=== PATIENT | female | born 1965 | race Caucasian/White ===

== ENCOUNTER 2022-03-09 05:22 | Observation (INO) ==
--- NOTE | 2022-03-02 08:55 | Anesthesiology Consultation ---
Date of Service March 02, 2022 Assessment & Plan (1) Encounter for pre-operative examination: Chart Review Chart Review: Acceptable Risk for Surgery and Patient NOT seen in Pre Admission Testing -COVID screening: Per PAT nursing assessment on 03/01/22. No known COVID-19 positive contacts or current COVID-19 related symptoms. Travel screen negative. Patient vaccinated for Covid. At surgeon discretion if preop Covid testing being done. History Surgery Operation Date: 03/09/22 07:50 Proposed Procedures p Laparoscopic Cholecystectomy - Marco Luong DO s Laparoscipic Hiatal Hernia with Parital Fundoplication - Marco Luong DO Height/Weight Height: 5 ft 2 in Weight: 71.214 kg Allergies Allergy/AdvReac Type Severity Reaction Status Date / Time Penicillins Allergy Severe RESPIRATORY Verified 02/07/22 10:30 SHUT-DOWN Egg Derived Allergy Mild Vomiting Verified 03/01/22 08:34 Cephalosporins Allergy Unknown KEFLEX: Verified 02/07/22 10:30 FACIAL RASH, RESOLVED WHEN DRUG D/C'D codeine AdvReac Unknown upset Verified 03/01/22 08:34 stomach Medications Home Medications Medication Instructions Recorded Confirmed Last Taken Humira(CF) Pen 40 mg/0.4 mL 40 mg (0.4 mL) subcut .weekly 356 12/13/21 03/01/22 Unknown subcutaneous kit (adalimumab) days #4 ea albuterol sulfate 90 mcg/actuation 2 puff inhalation Q6H PRN 01/16/22 03/01/22 Unknown aerosol inhaler Shortness Of Breath Or Wheezing atorvastatin 10 mg tablet 10 mg PO QPM 01/16/22 03/01/22 Unknown docusate sodium 100 mg capsule 100 mg PO QPM 01/16/22 03/01/22 Unknown fluticasone 100 mcg-salmeterol 50 1 inh inhalation BID 01/16/22 03/01/22 Unknown mcg/dose blistr powdr for inhalation (Advair Diskus) marijuana 1 inh PO UD 01/16/22 03/01/22 Unknown melatonin 3 mg capsule 3 mg PO HS PRN Sleep 01/16/22 03/01/22 Unknown naloxegol 12.5 mg tablet (Movantik) 12.5 mg PO QAM PRN constipation 01/16/22 03/01/22 Unknown pantoprazole 40 mg tablet,delayed 40 mg PO QPM 01/16/22 03/01/22 Unknown release (Protonix) pregabalin 225 mg capsule (Lyrica) 225 mg PO QPM 01/16/22 03/01/22 Unknown rivaroxaban 20 mg tablet (Xarelto) 20 mg PO QPM 01/16/22 03/01/22 Unknown sertraline 25 mg tablet 25 mg PO QPM 01/16/22 03/01/22 Unknown famotidine 40 mg tablet 40 mg PO DAILY #90 tabs 01/17/22 03/01/22 Unknown oxycodone 10 mg tablet,extended 5 mg PO BID 01/17/22 03/01/22 Unknown release,12 hr enoxaparin 40 mg/0.4 mL 40 mg (0.4 mL) subcut DAILY #2 mL 02/07/22 03/01/22 Unknown subcutaneous syringe (Lovenox) acetaminophen 500 mg tablet 1,000 mg PO BID PRN Pain 03/01/22 03/01/22 Unknown (Tylenol Extra Strength) pregabalin 75 mg capsule (Lyrica) 75 mg PO QAM 03/01/22 03/01/22 Unknown Past Medical History Medical History (Updated 03/02/22 @ 08:57 by Cass Yates PA-C) Asthma Uses inhaler frequently Chronic pain syndrome Depression DJD (degenerative joint disease) DVT (deep venous thrombosis) 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) (1 upper left leg after hip replacement) (1 left calf) Dyspepsia 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 (bridging with Lovenox for surgery per med list and surgeon note) GERD (gastroesophageal reflux disease) Hiatal hernia IBS (irritable bowel syndrome) Insomnia Pbhk-Omcoe-Lsxspxk disease Marijuana use vapes, frequent daily use GEORGE (obstructive sleep apnea) no device Psoriatic arthritis Sicca syndrome Stage 2 chronic kidney disease Stroke Incidentally noted- old "spot" found - no deficits Past Family History Family History Mother Clotting disorder Grandfather Diabetes Diverticulitis Other No family history of adverse response to anesthesia Past Surgical History Surgical History H/O arthroscopic knee surgery (~1987) Right H/O total hysterectomy (~1992) History of esophagogastroduodenoscopy (EGD) History of surgery History of rectal fissure repair Hx of colonoscopy S/P removal of ovarian cyst (~1984) Status post total hip replacement, left (~1993) Social History Smoking Status: Current every day smoker tobacco type: cigarettes Smoking cigarettes per day: 1 pack per day- advised Do You Dip or Chew Tobacco: No Hx Alcohol Use: No Hx Substance Use: Yes (frequent daily use- advised) substance use type: marijuana Lab Results Anesthesia Preop Results Results Anesthesia Widget: WBC 6.31 K/ul (4.8-10.8) 03/01/22 Hgb 14.6 g/dl (12.0-16.0) 03/01/22 Hct 44.1 % (34.1-44.9) 03/01/22 Plt 250 K/uL (130-400) 03/01/22 Na 140 mmol/L (136-145) 03/01/22 K 4.1 mmol/L (3.5-5.1) 03/01/22 Cl 105 mmol/L (98-107) 03/01/22 CO2 29 mmol/L (21-32) 03/01/22 BUN 16 mg/dl (6-23) 03/01/22 Creat 1.13 mg/dl (0.6-1.2) 03/01/22 Glucose Level 92 mg/dl (70-99(Fasting)) 03/01/22 Testing Electrocardiogram Date: 03/01/22 Findings: + NSR @ (71bpm ) Normal EKG per cardio.
[2022-03-09] MEDS ORDERED: HEPARIN SOD 5,000 UNIT/0.5 ML VIAL SQ SCH (06:00)
[2022-03-09] MEDS ORDERED: CLINDA 900 MG **Premixed Bag IV SCH (06:00)
[2022-03-09] MEDS ORDERED: LACTATED RINGER'S 1,000 ML IV SCH (06:00)
[2022-03-09] MEDS ORDERED: ACETAMINOPHEN 1000 MG/100 ML IV IV ONE (06:38)
[2022-03-09] MEDS ORDERED: SCOPOLAMINE 1 MG TDSY TD ONE (06:38)
[2022-03-09] MEDS ORDERED: SUGAMMADEX SODIUM 200 MG/2 ML VIAL IV ONE (06:38)
[2022-03-09] MEDS ORDERED: FAMOTIDINE/PF 20 MG/2 ML VIAL IV ONE (06:38)
[2022-03-09] MEDS ORDERED: MIDAZOLAM HCL 1 MG/ML 2ML VIAL ONE (06:40)
[2022-03-09] MEDS ORDERED: fentaNYL citrate 100 MCG/2 ML VIAL ONE ×2 (06:41)
[2022-03-09] MEDS ORDERED: LARYING-O-JET KIT (LTA) ONE (06:43)
[2022-03-09] MEDS ORDERED: PROPOFOL IV EMULSION 10 MG/ML 20 ML VIAL IV ONE (06:43)
[2022-03-09] MEDS ORDERED: BUPIVACAINE/EPINEPHRINE 0.5% MPF 1:200,000 30 ML VIAL ONE (06:46)
[2022-03-09] MEDS ORDERED: ROCURONIUM BROMIDE 10 MG/ML 5 ML VIAL IV ONE (06:47)
[2022-03-09] MEDS ORDERED: HYDROmorphone INJ 2 MG/ML SYR/VIAL ONE (06:47)
--- NOTE | 2022-03-09 06:55 | History & Physical Bridge Note ---
Date of Service March 09, 2022 History & Physical Bridge Note I have examined the patient, reviewed the History & Physical and in the interval since the performance of the History & Physical I have noted the following changes of clinical significance: She tripped and fell over her 's oxygen tubing last night and hurt her right knee. There is some swelling. We will obtain an x-ray postoperatively. She has held her Lovenox and Rivaroxaban. We will proceed today with laparoscopic cholecystectomy hiatal hernia repair and partial fundoplication.
[2022-03-09] MEDS ORDERED: METOCLOPRAMIDE HCL INJ 5 MG/ML 2 ML VIAL ONE (07:29)
[2022-03-09] MEDS ORDERED: DEXAMETHASONE SOD INJ 4 MG/ML VIAL ONE (07:29)
[2022-03-09] MEDS ORDERED: ONDANSETRON INJ 2 MG/ML 2 ML VIAL ONE (07:29)
[2022-03-09] MEDS ORDERED: HYDROmorphone INJ 2 MG/ML SYR/VIAL IV PRN (08:09)
[2022-03-09] MEDS ORDERED: PROMETHAZINE HCL 12.5 MG in SODIUM CHLORIDE 0.9% 50 ML IV PRN ×2 (08:09→11:28)
[2022-03-09] MEDS ORDERED: ePHEDrine sulfate 50 MG/ML AMP IV PRN (08:09)
[2022-03-09] MEDS ORDERED: ATROPINE SULFATE 0.1 MG/ML 10ML SYR IV PRN (08:09)
[2022-03-09] MEDS ORDERED: ONDANSETRON INJ 2 MG/ML 2 ML VIAL IV PRN ×2 (08:09→11:28)
[2022-03-09] MEDS ORDERED: fentaNYL citrate 100 MCG/2 ML VIAL IV PRN (08:09)
--- NOTE | 2022-03-09 08:35 | Operative Report ---
PG Post Operative Report Pre & Post Diagnosis Operation Date: 03/09/22 07:00 Pre-Op Diagnosis: Gallstones, Right Upper Quadrant Abdominal Pain, Hiatal Hernia Post-Op Diagnosis: Gallstones, Right Upper Quadrant Abdominal Pain, Hiatal Hernia I identified the patient and participated in the time-out.: Yes Procedure Operation Date: 03/09/22 07:00 Actual Procedures p Laparoscopic Cholecystectomy(Not Applicable) - Marco Luong DO s Laparoscipic Hiatal Hernia with Parital Fundoplication, Posterior Gastropexy(Not Applicable) - Marco Luong DO Surgeon Marco Luong DO Senior Market Research Analyst hansel Preston Estimated Blood Loss 10 Findings Consistent with Post-Op Diagnosis Specimens gallbladder Description of Procedure After informed consent was obtained the patient was taken to the operating room and placed in supine position. After successful intubation the entire abdomen was sterilely prepped and draped in usual fashion. A supraumbilical incision was made with an 11 blade scalpel and carried down through the soft tissue using cautery. Anterior rectus fascia was opened using cautery and two #0 Vicryl stay sutures were placed. Peritoneum was entered using blunt finger penetration and a finger sweep was performed. A 12 mm on trocar was placed and the abdomen was insufflated to 18 mmHg. A left upper quadrant 5 mm port a subxiphoid 12 mm port a right upper quadrant 5 mm port and a right flank 5 mm port were all placed under direct vision. The patient was placed in a reverse Trendelenburg position. We began by removing the gallbladder. The gallbladder was grasped and elevated superiorly and laterally. A [place] dissector was used to take down adhesions around the neck of the gallbladder. The cystic duct was skeletonized and clipped twice proximally and once distally with a laparoscopic clip straight knife machine cutter. It was transected. There was a small posterior cystic artery that was skeletonized clipped and divided as well as an anterior branch that was clipped and divided. The gallbladder was then removed using cautery. It was placed into an Endo Catch bag and removed from the camera port site. Any small bleeding points in the gallbladder fossa were controlled using cautery. Thorough irrigation was performed. There was no evidence of any bile leaks and adequate hemostasis after this portion of the procedure was completed. My attention then turned to the hiatal hernia. A liver retractor was used to elevate the left lobe of the liver. The liver retractor was connected to the table throughout the procedure. There was a moderate sized probably 4 cm hiatal hernia. There was minimal gastric incarceration. I began by taking down the hernia sac by coming up along the right anish of the diaphragm. We continued anteriorly and down over onto the left anish taking down the hernia sac in 360 degrees. Once this was completed anesthesia removed the orogastric tube and placed a 50 Peruvian bougie. I made a small window in the retrogastric space. I primarily closed the hernia defect with 0 Surgidac. I began by placing a posterior stitch from the left anish to the right anish. Once this was a ccomplished I then took down the top 4 short gastric vessels using the harmonic scalpel. I then advanced a grasper through the retrogastric window and was able to grasp the fundus of the stomach. I was able to pull this through the retrogastric window with ease. I was able to easily perform a shoeshine test without any tension. I performed a posterior gastropexy by securing the body of the stomach to the right crura of the diaphragm again using 0 Surgidac. I then completed the partial 270 degree wrap by securing the fundus of the stomach to the anterior esophageal fat pad with several 0 Surgidac stitches. The wrap laid nice and tension-free. We then removed the bougie. I completed the hiatal hernia repair anteriorly with several 0 Surgidac stitches. There was adequate hemostasis. No other gross abnormalities were identified. We did evaluate the gallbladder fossa and again no evidence of bleeding or bile leaks. The liver retractor and all of the trochars were removed. The abdomen was desufflated. The fascia of the camera port was closed using 0 Vicryl in a [id number]-[id number] fashion. All the wounds were irrigated and closed using 4-0 Monocryl. Marcaine with epinephrine was injected around them for postoperative analgesia and skin glue used as a dressing. The patient was awakened extubated and transferred recovery in stable condition. My physician social worker assistant was present through the entire case. She was instrumental in assisting with the gallbladder as well as the hiatal hernia repair and fundoplication. Running the camera wound closure and dressing placement. I attest to the content of the Intraoperative Record and any orders documented therein. Any exceptions are noted below.
--- NOTE | 2022-03-09 10:39 | Anesthesiology Progress Note ---
Date of Service March 09, 2022 Anesthesia Post Procedure Vital Signs Vital Signs: Temp Pulse Resp BP Pulse Ox O2 Del Method O2 Flow Rate 03/09/22 10:35 84 14 121/68 94 Nasal Cannula 3 03/09/22 10:25 84 8 L 129/81 93 Nasal Cannula 3 03/09/22 10:15 86 10 L 120/74 91 Nasal Cannula 3 03/09/22 10:05 36.9 C 82 7 L 118/73 91 Oxymask 5 03/09/22 09:55 78 12 111/64 93 Oxymask 10 03/09/22 09:45 81 10 L 116/62 95 Oxymask 15 03/09/22 09:35 81 11 L 118/67 95 Oxymask 15 03/09/22 09:05 85 14 135/80 94 Oxymask 10 03/09/22 09:25 86 13 128/74 97 Oxymask 15 03/09/22 09:15 89 13 137/78 92 Oxymask 8 03/09/22 08:55 86 13 103/88 92 Oxymask 10 03/09/22 08:44 36.1 C L 87 16 143/80 H 95 Oxymask 10 03/09/22 05:58 36.7 C 75 20 118/76 95 Room Air Pain Intensity Right Knee: Pain Intensity: 8 Generalized: Pain Intensity: 6 Transfer of Care Handoff Completed per policy Notes Mental Status: alert / awake / arousable and participated in evaluation Patient Amnestic to Procedure: Yes Nausea / Vomiting: adequately controlled Pain: adequately controlled Airway Patency, RR, SpO2: stable & adequate BP & HR: stable & adequate Hydration State: stable & adequate Anesthetic Complications: no major complications apparent
[2022-03-09] MEDS ORDERED: ALBUTEROL HFA 8 GM INHALER INH PRN (11:28)
[2022-03-09] MEDS ORDERED: HYDROmorphone INJ 0.5 MG/0.5 ML SYR IV PRN ×2 (11:28)
[2022-03-09] MEDS: LACTATED RINGER'S 1,000 ML IV SCH ×2 (11:46→20:04)
[2022-03-09] MEDS ORDERED: MELATONIN 3 MG TAB PO PRN (11:58)
[2022-03-09] MEDS: ACETAMINOPHEN 1,000 MG/100 ML VIAL IV SCH ×2 (12:21→19:37)
[2022-03-09 12:39] LABS: Creatinine Clr Calc Pharmacy 51.9 ml/min; Est GFR (African American) 62.3 ml/min; Est GFR (Non-African American) 53.7 ml/min
[2022-03-09] MEDS: FLUTICASONE/VILANTEROL 100/25MCG 14 PUFFS/INHALER INH SCH (13:02)
[2022-03-09] MEDS: FAMOTIDINE 40 MG TABLET PO SCH (13:02)
[2022-03-09] MEDS: PREGABALIN 75 MG CAP PO SCH (13:02)
[2022-03-09] MEDS: oxyCODONE HCL IR 5 MG TAB (IMMEDIATE RELEASE) PO PRN ×2 (13:28→19:41)
--- NOTE | 2022-03-09 15:08 | XRay Report ---
RIGHT KNEE 3 VIEWS CLINICAL HISTORY: Fall. Right knee pain. FINDINGS: AP, crosstable lateral, and sunrise views of the right knee are obtained. No prior studies are available for comparison at the time of dictation. The skeletal structures are osteopenic. No fra cture is seen. There is minimal tricompartmental degenerative joint space narrowing. There are small marginal osteophytes and degenerative beaking of the tibial spine. No joint effusion is seen. The ove rlying soft tissues are normal as imaged. IMPRESSION: Osteopenia and mild degenerative change as above with no acute bony abnormality identifie d. Electronically signed by: Hany Forbes M.D. 03/09/2022 3:06 PM
[2022-03-09] MEDS ORDERED: SERTRALINE HCL 50 MG TABLET PO SCH (21:00)
[2022-03-09] MEDS ORDERED: ENOXAPARIN INJ 40 MG/0.4 ML SYR SQ SCH (21:00)
[2022-03-09] MEDS ORDERED: PANTOprazole 40 MG TAB PO SCH (21:00)
[2022-03-09] MEDS ORDERED: PREGABALIN 75 MG CAP PO SCH (21:00)
[2022-03-10] MEDS: ACETAMINOPHEN 1,000 MG/100 ML VIAL IV SCH (02:48)
[2022-03-10] MEDS: oxyCODONE HCL IR 5 MG TAB (IMMEDIATE RELEASE) PO PRN (05:27)
[2022-03-10] MEDS: LACTATED RINGER'S 1,000 ML IV SCH (05:27)
[2022-03-10 07:26] LABS: Basophils # (auto) 0.01 K/uL (0-0.2); Basophils % (auto) 0.1 %; Hematocrit (blood only) 39.2 % (34.1-44.9); Hemoglobin 12.8 g/dl (12.0-16.0); Immature Granulocytes # (auto) 0.05 K/uL (0.00-0.02); Immature Granulocytes % (auto) 0.4 %; Lymphocytes # (auto) 2.17 K/uL (1.2-3.4); Lymphocytes % (auto) 16.4 %; Mean Corpuscular Hemoglobin 28.5 pg (25.0-34.0); Mean Corpuscular Hgb Conc 32.7 g/dL (32.0-36.0); Mean Corpuscular Volume 87.3 fL (80.0-100.0); Mean Platelet Volume 12.1 fL (9.4-12.3); Monocytes # (auto) 1.05 K/uL (0.24-0.82); Monocytes % (auto) 7.9 %; Neutrophils # (auto) 9.97 K/uL (1.4-6.5); Neutrophils % (auto) 75.2 %; Platelet Count 204 K/uL (130-400); RDW Coefficient of Variation 14.2 % (11.5-14.5); Red Blood Count 4.49 M/uL (3.93-5.22); White Blood Count 13.25 K/ul (4.8-10.8)
--- NOTE | 2022-03-10 07:37 | Surgery Progress Note ---
Date of Service March 10, 2022 Assessment & Plan (1) Hiatal hernia: Plan: POD#1 lap demetri and hiatal hernia repair with gastropexy with partial fundoplication WBC 13, Hbg12.8. Vitals are stable, and patient saturating well on room air Expected discomfort from hiatal hernia repair. Ordered for her albuterol and fluticasone. Abdomen is otherwise soft, non distended, and incisions c/d/i with some umbilical [place] incisional ecchymosis Continue patient's Oxycontin ER scheduled, + Oxy IR prn, + Tylenol prn If tolerates clear liquids without issues and patient stable will plan on discharge to home later today Has knee pain and x-rays were obtained showing no acute abnormalities F/u in clinic with Dr. Luong in 1 week, continue liquid diet until then as above. pt seen. doing as expected. ok for d/c. instructions given. Admission and Anticipated Discharge Date Admission Date: March 09, 2022 Subjective Patient doing okay. Having some chest discomfort and pain with inspiration. Just received an inhaler with some relief. No abdominal pain. Currently no nausea/vomiting. Tolerating some sips of clears. Physical Exam Physical Exam: awake/alert, no distress Respiratory: normal respiratory effort Gastrointestinal (Abdomen): Inspection/Auscultation: + abdominal surgical incision (c/d/i with skin glue, some surrounding ecchymosis of umbilical incision); abdomen not distended Percussion/Palpation: abdomen soft; abdomen nontender Results & Data ([facility]) Vital Signs (Past 12 Hours) Vital Signs Temp Pulse Resp BP Pulse Ox O2 Del Method O2 Flow Rate 03/10/22 07:11 68 18 98 Room Air 03/10/22 06:55 36.8 C 67 18 107/68 96 Nasal Cannula 2 03/10/22 02:51 37.2 C 68 18 123/74 18 L Nasal Cannula 2 03/09/22 21:27 36.8 C 67 16 104/62 94 Nasal Cannula 2.0 PG Care Time/CCT Total # of Minutes Spent Total Time Spent with Patient: Total time spent is greater than 50% in coordination of care (as documented) at patient's floor/unit and/or counseling patient: Coding Level of Care Code None Diagnoses Hiatal hernia K44.9
[2022-03-10 07:51] LABS: BUN Creatinine Ratio 16.9 (10-20); Creatinine Clr Calc Pharmacy 71.3 ml/min; Est GFR (African American) 91.4 ml/min; Est GFR (Non-African American) 78.8 ml/min; Potassium 4.7 mmol/L (3.5-5.1)
[2022-03-10] MEDS: FAMOTIDINE 40 MG TABLET PO SCH (08:07)
[2022-03-10] MEDS: PREGABALIN 75 MG CAP PO SCH (08:07)
[2022-03-10] MEDS: FLUTICASONE/VILANTEROL 100/25MCG 14 PUFFS/INHALER INH SCH (08:07)
[2022-03-10] MEDS ORDERED: oxyCODONE HCL 10 MG TABCR (OxyCONTIN) PO SCH (09:00)
--- NOTE | 2022-03-13 09:18 | Discharge Summary ---
Date of Service March 10, 2022 Principal Diagnosis symptomatic cholelithiasis hiatal hernia Discharge Exam awake/alert, no distress Respiratory normal respiratory effort Gastrointestinal (Abdomen) Inspection/Auscultation: + abdominal surgical incision (c/d/i with skin glue, some surrounding ecchymosis of umbilical incision); abdomen not distended Percussion/Palpation: abdomen soft; abdomen nontender Discharge Data Allergies Allergy/AdvReac Type Severity Reaction Status Date / Time Penicillins Allergy Severe RESPIRATORY Verified 03/09/22 06:04 SHUT-DOWN Egg Derived Allergy Mild Vomiting Verified 03/09/22 06:04 Cephalosporins Allergy Unknown KEFLEX: Verified 03/09/22 06:04 FACIAL RASH, RESOLVED WHEN DRUG D/C'D codeine AdvReac Unknown upset Verified 03/09/22 06:04 stomach Procedures Performed Operation Date: 03/09/22 07:00 Actual Procedures p Laparoscopic Cholecystectomy(Not Applicable) - Marco Luong DO s Laparoscipic Hiatal Hernia with Parital Fundoplication, Posterior Gastropexy(Not Applicable) - Marco Luong DO Hospital Course (1) Hiatal hernia: This is a 56y F who presented to the [facility] on 03/09/22 for an elective laparoscopic cholecystectomy along with hiatal hernia repair with partial fundoplication with Dr. Luong. The patient tolerated the procedure well, see op note for full details. The patient recovered in the PACU and was transferred to the surgical nursing floor in stable condition. Pain controlled on prn medications, she was ordered for a clear liquid diet, and anti-emetics ordered prn should she need them. Post operatively the patient did well. Had some expected surgical discomfort related to hiatal hernia repair that was manageabl e. She tolerated clears without n/v. Incisions c/d/i. On POD#1 she was deemed stable for discharge to home. Her post op diet instructions were reviewed and she was instructed to follow up in clinic with Dr. Luong in 1 week for check up. Total Time Total Time Spent Total Time Spent (In Minutes): 15 Discharge Plan Discharge Items Patient Disposition: Home - Self-Care Reason For Visit: AIDA REMOVAL AND HIATAL HERNIA REPAIR Discharge Diagnosis: laparoscopic cholecystectomy hiatal hernia repair Activity: Per Instructions section Lifting: No more than 10 pounds Bathing Comment: may shower starting 03/10/22; no soaking in tubs/pools Exercise/Sports: Wait until after follow-up appointment Driving/Machine Use: no driving while taking any narcotics for pain Non-emergency contact: Surgeon Call non-emergency contact if: you have any medication questions, your symptoms worsen, your pain is not controlled, your pain is concerning for you, you have a fever, your temperature is above 101.5, your wound has increased redness, your w ound has increased drainage and your wound pain has increased Follow-up/Referrals: Marco Luong, [Surgeon] - 03/20/22 10:45 am ( follow up in clinic within 1 week ) Veena Pizarro M.D. [Primary Care Provider] - 03/13/22 1:30 pm (If unable to keep this appointment, please contact the office to reschedule.) Diet: Other - See Diet Comment Addtl Attending Provider Instructions: Diet as discussed previously with Dr. Luong. Soft/liquidy diet...things you can put a spoon through Please do not take your Humira over the next two Fridays- hold off on taking it on both (03/10 and 03/17) continue the lovenox schedule as written. resume your rivaroxaban tomorrow. Pending Studies at Discharge: Yes Studies:: surgical pathology Stand-Alone Forms: My [facility] Medications and DC Order Prescriptions: New oxycodone 5 mg tablet 5 - 10 mg PO .[id number] PRN (Reason: pain, for initial therapy, max 6 tabs per day) Qty: 12 0RF Continued Humira(CF) Pen 40 mg/0.4 mL pen injector kit 40 mg subcut .weekly 356 Days Qty: 4 12RF pantoprazole [Protonix] 40 mg tablet,delayed release (DR/EC) 40 mg PO QPM sertraline 25 mg tablet 25 mg PO QPM Xarelto 20 mg tablet 20 mg PO QPM Rx Instructions: must administer with evening meal pregabalin [Lyrica] 225 mg capsule 225 mg PO QPM albuterol sulfate 90 mcg/actuation HFA aerosol inhaler 2 puff inhalation Q6H PRN (Reason: Shortness Of Breath Or Wheezing) fluticasone propion-salmeterol [Advair Diskus] 100-50 mcg/dose blister with device 1 inh inhalation BID atorvastatin 10 mg tablet 10 mg PO QPM docusate sodium 100 mg capsule 100 mg PO QPM marijuana 1 inh PO UD melatonin 3 mg capsule 3 mg PO HS PRN (Reason: Sleep) Movantik 12.5 mg tablet 12.5 mg PO QAM PRN (Reason: constipation ) Rx Instructions: must be taken on empty stomach; no food 1 hr after or 2-3 hrs before dose oxycodone 10 mg tablet extended release 12 hr 5 mg PO BID famotidine 40 mg tablet 40 mg PO DAILY Qty: 90 3RF enoxaparin [Lovenox] 40 mg/0.4 mL syringe 40 mg subcut DAILY Qty: 2 0RF pregabalin [Lyrica] 75 mg Capsule 75 mg PO QAM acetaminophen [Tylenol Extra Strength] 500 mg Tablet 1,000 mg PO BID PRN (Reason: Pain) Discharge Orders: Discharge Order (Routine); Ordered 03/10/22 Ordered By: Marco Soriano/Other Patient Handouts: Cholecystectomy Admission Data Admit Date/Time: 03/09/22 08:49 Attending Provider: Marco Luong Admit Provider: Marco Luong Primary Care Provider: Veena Pizarro Other Interventions: Discharge Summary Assessment (RN) Last Done: 03/10/22 09:52 Coding Level of Care Code HOSP INP/OBS DISCH 30 MIN/LESS Diagnoses Hiatal hernia K44.9
== END 2022-03-10 11:09 | disposition home or self-care (01) ==
LOC: 3E 05:22 → ASU 05:22

== ENCOUNTER 2022-07-07 05:09 | Observation (INO) ==
--- NOTE | 2022-06-07 10:47 | PAT Medication Instructions ---
Medication Instructions Date of Service June 07, 2022 Home Medications Medication Instructions Recorded enoxaparin 40 mg/0.4 mL 40 mg (0.4 mL) subcut DAILY 4 days 04/26/22 subcutaneous syringe (Lovenox) #1.6 mL albuterol sulfate 90 mcg/actuation aerosol inhaler 2 puff inhalation Q6H PRN atorvastatin 10 mg tablet 10 mg PO QPM docusate sodium 100 mg capsule 100 mg PO QPM marijuana 1 inh PO DAILY melatonin 3 mg capsule 3 mg PO HS PRN pantoprazole 40 mg tablet,delayed release (Protonix) 40 mg PO QPM pregabalin 225 mg capsule (Lyrica) 225 mg PO QPM rivaroxaban 20 mg tablet (Xarelto) 20 mg PO QPM sertraline 25 mg tablet 25 mg PO QPM oxycodone 10 mg tablet,extended release,12 hr 5 mg PO BID acetaminophen 500 mg tablet (Tylenol Extra Strength) 1,000 mg PO BID PRN pregabalin 75 mg capsule (Lyrica) 75 mg PO QAM cyclobenzaprine 10 mg tablet 10 mg PO HS enoxaparin 40 mg/0.4 mL subcutaneous syringe (Lovenox) 40 mg (0.4 mL) subcut DAILY adalimumab 40 mg/0.4 mL subcutaneous pen kit (Humira(CF) Pen) 40 mg subcut Q7D famotidine 40 mg tablet 40 mg PO QPM fluticasone 250 mcg-salmeterol 50 mcg/dose blistr powdr for inhalation (Advair Diskus) 1 inh inhalation BID oxycodone 5 mg tablet 5 - 10 mg PO UD PRN Continue as directed adalimumab 40 mg/0.4 mL subcutaneous pen kit (Humira(CF) Pen) 40 mg subcut Q7D ASK your prescriber and surgeon enoxaparin 40 mg/0.4 mL subcutaneous syringe (Lovenox) 40 mg (0.4 mL) subcut DAILY (in order for spinal or epidural anesthesia, Lovenox needs to be stopped 24 hours before surgery so last dose would be the morning of the day before surgery-morning of 07/06/22) rivaroxaban 20 mg tablet (Xarelto) 20 mg PO QPM(in order for spinal or epidural anesthesia, Xarelto needs to be stopped 72 hours/3 days before surgery. Please check if okay with doctor that prescribes this to you) STOP taking 24 hours before surgery marijuana 1 inh PO DAILY Take morning of surgery With a small sip of water, OTHERWISE NOTHING TO EAT OR DRINK AFTER MIDNIGHT: albuterol sulfate 90 mcg/actuation aerosol inhaler 2 puff inhalation Q6H PRN(use if needed; please bring with you to hospital day of surgery if possible) oxycodone 10 mg tablet,extended release,12 hr 5 mg PO BID acetaminophen 500 mg tablet (Tylenol Extra Strength) 1,000 mg PO BID PRN(if needed) pregabalin 75 mg capsule (Lyrica) 75 mg PO QAM oxycodone 5 mg tablet 5 - 10 mg PO UD PRN(if needed) fluticasone 250 mcg-salmeterol 50 mcg/dose blistr powdr for inhalation (Advair Diskus) 1 inh inhalation BID Take evening before surgery albuterol sulfate 90 mcg/actuation aerosol inhaler 2 puff inhalation Q6H PRN(if needed) atorvastatin 10 mg tablet 10 mg PO QPM docusate sodium 100 mg capsule 100 mg PO QPM melatonin 3 mg capsule 3 mg PO HS PRN(if needed) pantoprazole 40 mg tablet,delayed release (Protonix) 40 mg PO QPM pregabalin 225 mg capsule (Lyrica) 225 mg PO QPM sertraline 25 mg tablet 25 mg PO QPM oxycodone 10 mg tablet,extended release,12 hr 5 mg PO BID acetaminophen 500 mg tablet (Tylenol Extra Strength) 1,000 mg PO BID PRN(if needed) cyclobenzaprine 10 mg tablet 10 mg PO HS famotidine 40 mg tablet 40 mg PO QPM fluticasone 250 mcg-salmeterol 50 mcg/dose blistr powdr for inhalation (Advair Diskus) 1 inh inhalation BID Other Notes If you have any questions please call us at [phone] or [phone] or [phone] or [phone]
--- NOTE | 2022-06-12 10:00 | Anesthesiology Consultation ---
Date of Service June 12, 2022 Assessment & Plan (1) Encounter for pre-operative examination: Chart Review Chart Review: Acceptable Risk for Surgery and Patient seen in Pre Admission Testing -Pt initially hesitant re: SAB- did explain SAB and GA - patient will discuss with anesthesiologist DOS Per surgeon note 04/26/22= "We will stop the Xarelto 3 days preoperatively. We will bridge her with Lovenox 40 mg daily until the day of surgery. Postoperatively, she can resume the Xarelto the following day." Left UE restriction - Pt is NOT an Outpatient Joint candidate due to comorbidities Per PAT appt on 06/12/22, patient denies any recent travel or large group activities. Pt is vaccinated for Covid. Will leave to surgeon's discretion if preop Covid testing needed. Educated on importance of using Covid precautions one week prior to surgery Lap demetri, Laparoscopic Hiatal Hernia with Partial Fundoplication, Posterior Gastropexy 03/09/22= Done under GA with Grade 1 view with Glidescope #3. ETT #7. Atraumatic History Surgery Operation Date: 07/07/22 09:20 Proposed Procedures p Right Anterior Total Hip Arthroplasty - Refugio Rosario, DO Height/Weight Height: 5 ft 2 in Weight: 72.2 kg Allergies Allergy/AdvReac Type Severity Reaction Status Date / Time Penicillins Allergy Severe RESPIRATORY Verified 06/05/22 14:17 SHUT-DOWN Egg Derived Allergy Mild Vomiting Verified 06/05/22 14:17 Cephalosporins Allergy Unknown KEFLEX: Verified 06/05/22 14:17 FACIAL RASH, RESOLVED WHEN DRUG D/C'D codeine AdvReac Unknown upset Verified 06/05/22 14:17 stomach Medications Home Medications Medication Instructions Recorded Confirmed Last Taken albuterol sulfate 90 mcg/actuation 2 puff inhalation Q6H PRN 01/16/22 06/05/22 03/09/22 04:15 aerosol inhaler Shortness Of Breath Or Wheezing atorvastatin 10 mg tablet 10 mg PO QPM 01/16/22 06/05/22 03/08/22 20:00 docusate sodium 100 mg capsule 100 mg PO QPM 01/16/22 06/05/22 03/07/22 marijuana 1 inh PO DAILY 01/16/22 06/05/22 03/08/22 22:30 melatonin 3 mg capsule 3 mg PO HS PRN Sleep 01/16/22 06/05/22 03/08/22 22:15 pantoprazole 40 mg tablet,delayed 40 mg PO QPM 01/16/22 06/05/22 03/08/22 02:00 release (Protonix) pregabalin 225 mg capsule (Lyrica) 225 mg PO QPM 01/16/22 06/05/22 03/08/22 20:00 rivaroxaban 20 mg tablet (Xarelto) 20 mg PO QPM 01/16/22 06/05/22 03/07/22 20:00 sertraline 25 mg tablet 25 mg PO QPM 01/16/22 06/05/22 03/08/22 20:00 oxycodone 10 mg tablet,extended 5 mg PO BID 01/17/22 06/05/22 03/08/22 21:00 release,12 hr acetaminophen 500 mg tablet 1,000 mg PO BID PRN Pain 03/01/22 06/05/22 03/09/22 04:15 (Tylenol Extra Strength) pregabalin 75 mg capsule (Lyrica) 75 mg PO QAM 03/01/22 06/05/22 03/09/22 04:15 cyclobenzaprine 10 mg tablet 10 mg PO HS 03/27/22 06/05/22 Unknown enoxaparin 40 mg/0.4 mL 40 mg (0.4 mL) subcut DAILY 4 days 04/26/22 06/05/22 Unknown subcutaneous syringe (Lovenox) #1.6 mL adalimumab 40 mg/0.4 mL 40 mg subcut Q7D 06/05/22 06/05/22 Unknown subcutaneous pen kit (Humira(CF) Pen) famotidine 40 mg tablet 40 mg PO QPM 06/05/22 06/05/22 Unknown fluticasone 250 mcg-salmeterol 50 1 inh inhalation BID 06/05/22 06/05/22 Unknown mcg/dose blistr powdr for inhalation (Advair Diskus) oxycodone 5 mg tablet 5 - 10 mg PO UD PRN pain, for 06/05/22 06/05/22 Unknown initial therapy, max 6 tabs per day Past Medical History Medical History (Updated 06/12/22 @ 10:29 by Cass J. 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) (1 upper left leg after hip replacement) (1 right calf) Dyspepsia 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 (bridging with Lovenox for surgery per med list and surgeon note) GERD (gastroesophageal reflux disease) Well controlled and stable Hiatal hernia IBS (irritable bowel syndrome) Stable Insomnia Nacg-Pdaxr-Rbyqnbi disease Macular degeneration starting w/early signs of macular degeneration, had eye plugs placed under local a few months ago Marijuana use vapes, frequent daily use GEORGE (obstructive sleep apnea) DOES NOT USE DEVICE-"IT GIVES HER HEADACHES" Psoriatic arthritis Right knee pain S/p fall two months ago- having continued pain - will discuss with Dr. Rosario Sicca syndrome Stage 2 chronic kidney disease Stroke Incidentally noted- old "spot" found - no deficits Exercise / Class Metabolic Activity II 4-5 Yardwork/Stairs/Walk up hill (one flight of stairs- no chest pain or SOB) Past Family History Family History Mother Clotting disorder Grandfather Diabetes Diverticulitis Other No family history of adverse response to anesthesia Past Surgical History Surgical History H/O arthroscopic knee surgery (~1987) Right H/O total hysterectomy (~1992) History of esophagogastroduodenoscopy (EGD) History of repair of hiatal hernia (03/09/22) p Laparoscopic Cholecystectomy(Not Applicable) - Marco Luong, DO s Laparoscipic Hiatal Hernia with Parital Fundoplication, Posterior Gastropexy(Not Applicable) - Marco Luong, DO History of surgery History of rectal fissure repair Hx laparoscopic cholecystectomy (03/09/22) p Laparoscopic Cholecystectomy(Not Applicable) - Marco Luong, DO s Laparoscipic Hiatal Hernia with Parital Fundoplication, Posterior Gastropexy(Not Applicable) - Marco Luong, DO Hx of colonoscopy S/P removal of ovarian cyst (~1984) Status post total hip replacement, left (~1993) Past Anesthesia History No Hx of Anesthesia Complications and No Family Hx of Anesthesia Complications History of PONV No Hx of PONV and No Hx of Motion Sickness Social History Smoking Status: Current every day smoker tobacco type: cigarettes Smoking cigarettes per day: 30-40 cigs/day Do You Dip or Chew Tobacco: No Hx Alcohol Use: Yes (HX-NONE FOR 15 YEARS) Hx Substance Use: Yes (MEDICAL CARD) substance use type: marijuana Last Used Substance Other:: DAILY Review of Systems Chronic cough/wheezing- secondary to asthma and smoking Patient denies chest pain, shortness of breath, dyspnea on exertion, palpita tions. No hx of seizures, CT. No hx of blood transfusions Physical Exam Vital Signs VITALS BP 122/87 P 67 TEMP 99.0 SP02 96% RESP 16 Constitutional no acute distress ENMT Mouth: no TMJ clicking Thyromental Distance: > or= 3.5 Finger Breadths (3.5) Mallampati Class: I Mouth / Teeth: 1. Missing 2. Missing Missing molar Neck + limited neck extension Respiratory normal respiratory effort; no respiratory distress Auscultation: lungs clear to auscultation bilaterally; no wheezes Cardiovascular Rate/Rhythm: regular rate and regular rhythm Heart Sounds: no murmur Vessels: no carotid bruit Musculoskeletal Spine: + pain with cervical ROM Extremities: extremities normal to inspection Psychiatric Orientation: alert Lab Results Anesthesia Preop Results Results Anesthesia Widget: WBC 7.60 K/ul (4.8-10.8) 06/12/22 Hgb 13.8 g/dl (12.0-16.0) 06/12/22 Hct 41.9 % (37.0-47.0) 06/12/22 Plt 199 K/uL (130-400) 06/12/22 Na 138 mmol/L (136-145) 06/12/22 K 4.4 mmol/L (3.5-5.1) 06/12/22 Cl 106 mmol/L (98-107) 06/12/22 CO2 27 mmol/L (21-32) 06/12/22 BUN 15 mg/dl (6-23) 06/12/22 Creat 1.00 mg/dl (0.6-1.2) 06/12/22 Glucose Level 96 mg/dl (70-99(Fasting)) 06/12/22 PT 10.5 Seconds (9.0-12.0) 06/12/22 PTT 29.5 Seconds (21.0-31.0) 06/12/22 INR 1.0 (0.9-1.1) 06/12/22 Blood Type A Positive 06/12/22 Antibody Screen NEGATIVE 06/12/22 Testing Electrocardiogram Date: 03/01/22 Findings: + NSR @ (71bpm ) Normal EKG per cardio. Chest X-Ray Date: 06/12/22 Findings: + NAD COVID-19 Risk Screen Screening Information COVID-19 Screen Date: 06/12/22 Exposure 21 Days Family/Household +COVID Last 21 Days: No Exposure 10 Days Any COVID Exposure Last 10 Days: No Symptoms Last 10 Days Experienced COVID Sx Last 10 Days: No + COVID 0-90 Days COVID + in Last 0-90 Days: No Risk Plan COVID Risk Plan: No Risk Identified Patient Education COVID Preop Screening Education Complete: Yes
--- NOTE | 2022-07-06 12:20 | History & Physical Report ---
Date of Service July 06, 2022 Assessment & Plan (1) Osteoarthritis of right hip: We will proceed with a right anterior total of arthroplasty. Postoperatively she will be started on Xarelto for DVT prophylaxis and kept overnight in the hospital for postop medical management. She plans to use energy Bracketr upon discharge. History of Present Illness Chief Complaint: Osteoarthritis of the right hip. Primary Care Provider: Veena Galvez is a pleasant 56-year-old female who had a left hip replaced by Dr. Pearce over 20 years ago. Unfortunately postoperatively she developed 2 DVTs. She was found to have factor V Leiden deficiency. She has been on Xarelto since. She has a lot of back issues too. She has seen multiple physicians for that. Her bigger complaint now is her right hip pain. It keeps her up at night. She has constant pain in her groin. She is ambulating with a cane. X- rays and clinical examination have shown advanced osteoarthritis of the right hip. After failing conservative treatment, she has elected proceed with a right anterior total hip arthroplasty. Allergies Allergy/AdvReac Type Severity Reaction Status Date / Time Penicillins Allergy Severe RESPIRATORY Verified 06/05/22 14:17 SHUT-DOWN Egg Derived Allergy Mild Vomiting Verified 06/05/22 14:17 Cephalosporins Allergy Unknown KEFLEX: Verified 06/05/22 14:17 FACIAL RASH, RESOLVED WHEN DRUG D/C'D codeine AdvReac Unknown upset Verified 06/05/22 14:17 stomach Home Medications Medication Instructions Recorded Confirmed Type albuterol sulfate 90 mcg/actuation 2 puff inhalation Q6H PRN 01/16/22 06/05/22 History aerosol inhaler Shortness Of Breath Or Wheezing atorvastatin 10 mg tablet 10 mg PO QPM 01/16/22 06/05/22 History docusate sodium 100 mg capsule 100 mg PO QPM 01/16/22 06/05/22 History marijuana 1 inh PO DAILY 01/16/22 06/05/22 History melatonin 3 mg capsule 3 mg PO HS PRN Sleep 01/16/22 06/05/22 History pantoprazole 40 mg tablet,delayed 40 mg PO QPM 01/16/22 06/05/22 History release (Protonix) pregabalin 225 mg capsule (Lyrica) 225 mg PO QPM 01/16/22 06/05/22 History rivaroxaban 20 mg tablet (Xarelto) 20 mg PO QPM 01/16/22 06/05/22 History sertraline 25 mg tablet 25 mg PO QPM 01/16/22 06/05/22 History oxycodone 10 mg tablet,extended 5 mg PO BID 01/17/22 06/05/22 History release,12 hr acetaminophen 500 mg tablet 1,000 mg PO BID PRN Pain 03/01/22 06/05/22 History (Tylenol Extra Strength) pregabalin 75 mg capsule (Lyrica) 75 mg PO QAM 03/01/22 06/05/22 History cyclobenzaprine 10 mg tablet 10 mg PO HS 03/27/22 06/05/22 History enoxaparin 40 mg/0.4 mL 40 mg (0.4 mL) subcut DAILY 4 days 04/26/22 06/05/22 Rx subcutaneous syringe (Lovenox) #1.6 mL adalimumab 40 mg/0.4 mL 40 mg subcut Q7D 06/05/22 06/05/22 History subcutaneous pen kit (Humira(CF) Pen) famotidine 40 mg tablet 40 mg PO QPM 06/05/22 06/05/22 History fluticasone 250 mcg-salmeterol 50 1 inh inhalation BID 06/05/22 06/05/22 History mcg/dose blistr powdr for inhalation (Advair Diskus) oxycodone 5 mg tablet 5 - 10 mg PO UD PRN pain, for 06/05/22 06/05/22 History initial therapy, max 6 tabs per day 3-in-1 Commode #1 ea 06/14/22 Rx Wheeled Walker #1 ea 06/14/22 Rx oxycodone-acetaminophen 5 mg-325 1 tab PO Q6H PRN pain #60 tabs 07/06/22 Rx mg tablet (Percocet) Past Med/Surg History Medical History Asthma Uses inhaler frequently if smoking increased Asthma stable at this time per patient Chronic pain syndrome Depression DJD (degenerative joint disease) DVT (deep venous thrombosis) 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) (1 upper left leg after hip replacement) (1 right calf) Dyspepsia 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 (bridging with Lovenox for surgery per med list and surgeon note) GERD (gastroesophageal reflux disease) Well controlled and stable Hiatal hernia IBS (irritable bowel syndrome) Stable Insomnia Rmnj-Urcio-Jwxfjha disease Macular degeneration starting w/early signs of macular degeneration, had eye plugs placed under local a few months ago Marijuana use vapes, frequent daily use GEORGE (obstructive sleep apnea) DOES NOT USE DEVICE-"IT GIVES HER HEADACHES" Psoriatic arthritis Right knee pain S/p fall two months ago- having continued pain - will discuss with Dr. Rosario Sicca syndrome Stage 2 chronic kidney disease Stroke Incidentally noted- old "spot" found - no deficits Surgical History H/O arthroscopic knee surgery (~1987) Right H/O total hysterectomy (~1992) History of esophagogastroduodenoscopy (EGD) History of repair of hiatal hernia (03/09/22) p Laparoscopic Cholecystectomy(Not Applicable) - Marco Luong DO s Laparoscipic Hiatal Hernia with Parital Fundoplication, Posterior Gastropexy(Not Applicable) - Marco Luong DO History of surgery History of rectal fissure repair Hx laparoscopic cholecystectomy (03/09/22) p Laparoscopic Cholecystectomy(Not Applicable) - Marco Luong DO s Laparoscipic Hiatal Hernia with Parital Fundoplication, Posterior Gastropexy(Not Applicable) - Marco Luong DO Hx of colonoscopy S/P removal of ovarian cyst (~1984) Status post total hip replacement, left (~1993) Family History Mother Clotting disorder Grandfather Diabetes Diverticulitis Other No family history of adverse response to anesthesia Social History Smoking Status: Current every day smoker Tobacco Type: Cigarettes and E-cigarettes / Vaping Age Started Using Tobacco: 18; packs per day: 1; Cigarettes Per Day: 30-40 cigs/day; Second Hand Exposure: No; Do You Dip or Chew Tobacco: No; Tobacco Cessation Education Requested by Patient: No Hx Alcohol Use: Yes (HX-NONE FOR 15 YEARS) Hx Substance Use: Yes (MEDICAL CARD) Last Used Substance Other:: DAILY Preferred Language: Malawian Communication Ability: Effective Bricklayer Helper Required: No Beliefs That Will Affect Care: None marital status: Current Living Situation: Spouse current occupational status: disabled How many Children do You have: 0 Other Information That Helps Us Care for You: No Feels Safe at Home: Yes Safety Concerns: Feels Safe At This Time during the past year weight has: decreased > 10 lbs Assistive Devices: Cane, Glasses and Walker Assistive Devices Comment: WILL LEAVE GLASSES AT HOME Review of Systems All systems reviewed & are unremarkable except as noted in HPI & below. Physical Exam On physical examination of the right hip, she has decreased range of motion. She has pain with forced internal and external rotation.. Constitutional WD/WN, vitals as above Eyes PERRL, conjunctivae normal, anicteric sclerae ENMT external ear and nose normal, oropharynx normal Neck trachea midline, no thyromegaly Respiratory normal respiratory effort, lungs clear to auscultation Cardiovascular RRR, no murmur, no edema Gastrointestinal (Abdomen) normal bowel sounds, soft, nontender, no hepatosplenomegaly Skin no rashes, warm and dry Psychiatric A+Ox3, euthymic affect Results & Data Results & Data Laboratory Results . Diagnostic Findings X-rays of the right hip show advanced osteoarthritis with joint space narrowing, osteophyte formation, and xamy-gw-mfgj articulation. PG Care Time/CCT Total # of Minutes Spent Total Time Spent with Patient: Total time spent is greater than 50% in coordination of care (as documented) at patient's floor/unit and/or counseling patient: Coding Level of Care Code None Diagnoses Osteoarthritis of right hip M16.11
[2022-07-07] MEDS ORDERED: ORTHO JOINT MIX INFIL SCH (06:00)
[2022-07-07] MEDS ORDERED: ACETAMINOPHEN 500 MG TAB PO SCH (06:00)
[2022-07-07] MEDS ORDERED: GABAPENTIN 600 MG DOSE PO SCH (06:00)
[2022-07-07] MEDS ORDERED: TRANEXAMIC ACID 1,000 MG **IV Pre-op IV SCH (06:00)
[2022-07-07] MEDS ORDERED: FAMOTIDINE 20 MG TAB PO SCH (06:00)
[2022-07-07] MEDS ORDERED: LR 60ML/HR IV SCH (06:00)
[2022-07-07] MEDS ORDERED: LR 500ML BOLUS, THEN 15ML/HR IV SCH (06:00)
[2022-07-07] MEDS ORDERED: dexAMETHasone 4 MG TAB PO SCH (06:00)
[2022-07-07] MEDS ORDERED: TRANEXAMIC ACID 1,000 MG **IV Intra-op IV SCH (06:00)
[2022-07-07] MEDS ORDERED: ceFAZolin 2000MG 2,000 MG/15 ML SYR IV ONE (06:26)
[2022-07-07] MEDS ORDERED: BUPIVACAINE 0.5 % 5 MG/1 ML PF 10ML VIAL ONE (06:26)
[2022-07-07] MEDS ORDERED: ceFAZolin 2,000 MG/15 ML IV PUSH IV ONE (06:27)
--- NOTE | 2022-07-07 06:38 | History & Physical Bridge Note ---
Date of Service July 07, 2022 History & Physical Bridge Note I have examined the patient, reviewed the History & Physical and in the interval since the performance of the History & Physical I have noted the following changes of clinical significance: no changes noted
[2022-07-07] MEDS ORDERED: ONDANSETRON INJ 2 MG/ML 2 ML VIAL ONE (06:40)
[2022-07-07] MEDS ORDERED: DEXAMETHASONE SOD INJ 4 MG/ML VIAL ONE (06:40)
[2022-07-07] MEDS ORDERED: PROPOFOL IV EMULSION 10 MG/ML 20 ML VIAL IV ONE ×4 (06:40→08:14)
[2022-07-07] MEDS ORDERED: fentaNYL citrate PF 100 MCG/2 ML VIAL ONE (06:40)
[2022-07-07] MEDS ORDERED: LIDOCAINE 2% 2 ML VIAL/AMP(20MG/ML) INFIL ONE (06:40)
[2022-07-07] MEDS ORDERED: MIDAZOLAM HCL 1 MG/ML 2ML VIAL ONE ×2 (06:40→06:55)
[2022-07-07] MEDS ORDERED: ATROPINE SULFATE 0.1 MG/ML 10ML SYR IV PRN (06:46)
[2022-07-07] MEDS ORDERED: ONDANSETRON INJ 2 MG/ML 2 ML VIAL IV PRN ×2 (06:46→09:42)
[2022-07-07] MEDS ORDERED: ePHEDrine sulfate 50 MG/ML AMP IV PRN (06:46)
[2022-07-07] MEDS ORDERED: ORTHO JOINT ANESTHETIC ONE (06:57)
[2022-07-07] MEDS ORDERED: ePHEDrine sulfate 50 MG/ML SYR ONE (07:30)
--- NOTE | 2022-07-07 08:21 | Operative Report ---
PG Post Operative Report Pre & Post Diagnosis Operation Date: 07/07/22 07:00 Pre-Op Diagnosis: Degenerative Joint Disease Right Hip Post-Op Diagnosis: Degenerative Joint Disease Right Hip I identified the patient and participated in the time-out.: Yes Procedure Operation Date: 07/07/22 07:00 Actual Procedures p Right Anterior Total Hip Arthroplasty(Right) - Refugio Rosario DO Surgeon Refugio Rosario DO Weight Guesser Jeremy Almazan PA-C Estimated Blood Loss 250 Findings Consistent with Post-Op Diagnosis Specimens Right femoral head Description of Procedure Implants used I used a ZimmerBiomet total hip arthroplasty system with a size 2 standard offset Avenir Complete stem, a 50 mm G7 cup with a 25mm screw, an E1 tavon yethylene liner, a 36 mm ceramic head with a 0 neck. Leonor arrived at the hospital for the above procedure. She was seen in the preoperative holding area and the operative extremity was identified and signed. She was given a spinal anesthetic, a preoperative antibiotic, and TXA. She was then taken back to the operating room and laid on the table in the supine position. She was given basic sedation. The operative leg was secured to a Puristst leg positioner. The hip was then prepped and draped in sterile fashion. A timeout was done and the patient and the operative extremity was properly identified. An anterior approach was used. Dissection was taken down through the fascia and the tensor muscle belly was retracted laterally and the rectus was retracted medially. The circumflex vessels were identified and ligated. The capsule was then incised and tagged for later repair. The femoral neck was then cut and the femoral head was removed. The acetabulum was exposed. Time was spent doing a complete circumferential labral release. Sequential reaming of the acetabulum up to a size 49 reamer was done. Final reamings were done under fluoroscopy to ensure appropriate version. A Biomet 50 mm G7 cup was then impacted into place. A single 25 mm screw was placed. The E1 polyethylene liner was then snapped into place. Surrounding soft tissues were then injected with 100 cc of an orthopedic pain control cocktail. The proximal femur was then exposed. Sequential broaching up to a size 2 broach was done. Off that broach a size 36 head with a 0 neck was trialed. The hip was reduced and fluoroscopic images showed anatomic alignment of the implants in acceptable length. The broach was removed. The final size 2 standard offset Avenir Complete stem was then impacted into place. A ceramic 36 mm head with a 0 neck was then impacted onto the stem and the hip was reduced. Final fluoroscopic images showed anatomic alignment of the hip. The capsule was then closed with #1 Vicryl suture. A dilute betadyne lavage was then done for 3 minutes. The joint was then irrigated with normal saline solution. The fascia was closed with #1 PDS suture. Skin was closed with 2-0 Vicryl, piero, and a Silverlon dressing. She was then transferred to a hospital bed and taken to the post anesthesia care unit in stable condition. She tolerated the procedure well. Jeremy Almazan PA-C, was present for the entire procedure. He was critical for patient positioning, prepping, draping, retraction exposure, wound closure and application of sterile dressing. I attest to the content of the Intraoperative Record and any orders documented therein. Any exceptions are noted below.
[2022-07-07] MEDS: fentaNYL citrate PF 100 MCG/2 ML VIAL IV PRN ×3 (08:44→08:54)
[2022-07-07] MEDS ORDERED: HYDROmorphone INJ 1 MG/ML SYRINGE ONE (09:04)
[2022-07-07] MEDS ORDERED: METOCLOPRAMIDE HCL INJ 5 MG/ML 2 ML VIAL IV PRN (09:42)
[2022-07-07] MEDS ORDERED: NALOXONE HCL 0.4 MG/1 ML VIAL/CARP IV PRN (09:42)
[2022-07-07] MEDS ORDERED: ALBUTEROL HFA 8 GM INHALER INH PRN (09:42)
[2022-07-07] MEDS ORDERED: bisacodyL 10 MG SUPP PR PRN (09:42)
[2022-07-07] MEDS ORDERED: MAGNESIUM HYDROXIDE SUSP 30 ML UDC PO PRN (09:42)
[2022-07-07] MEDS ORDERED: MELATONIN 3 MG TAB PO PRN (09:53)
[2022-07-07] MEDS: ALLERGY Noted to ORDERED Medication SCH ×4 (10:30→17:31)
--- NOTE | 2022-07-07 10:34 | XRay Report ---
XR hip 1V RT w pelvis HISTORY: 57 years-old Female IN PACU - Post Surgical right hip arthroplasty COMPARISON: 04/26/2022 TECHNIQUE: AP view the pelvis with crosstable lateral view of the right hip FINDINGS: Unchanged appearance of the left hip arthroplasty. Right hip arthroplasty demonstrates satisfactory a lignment. Lateral skin piero are present with expected postoperative soft tissue swelling and deep tissue air. No acute fracture or unexpected opaque foreign body. IMPRESSION: Right hip arthroplasty with expected postoperative changes. ACT 112: Negative or not required by law. The above report was generated using voice recognition software. It may contain grammatical, syntax o r spelling errors. Electronically signed by: Alexander Brown M.D. 07/07/2022 10:32 AM
[2022-07-07] MEDS: KETOROLAC 30 MG/ML VIAL IV SCH ×3 (10:41→21:44)
[2022-07-07] MEDS: oxyCODONE HCL IR 5 MG TAB (IMMEDIATE RELEASE) PO PRN ×3 (10:43→19:45)
[2022-07-07] MEDS: PREGABALIN 75 MG CAP PO SCH (10:43)
[2022-07-07] MEDS: MULTIVITAMIN TAB PO SCH (10:44)
[2022-07-07] MEDS: DOCUSATE SODIUM 100 MG CAP PO SCH ×2 (10:44→20:09)
[2022-07-07] MEDS: SODIUM CHLORIDE 0.9% 1000ML 1,000 ML IV SCH ×2 (10:45→20:04)
--- NOTE | 2022-07-07 11:38 | Fluoroscopy Report ---
FL hip RT 1V CLINICAL HISTORY: RTright hip arthroplasty COMPARISON STUDY: 07/07/2022 FLUOROSCOPY TIME: 20 seconds FLUOROSCOPY IMAGES: 1 EXPOSURE DOSE: 1.7253 mGy Air Kerma FINDINGS: Satisfactory alignment of the right hip arthroplasty. No acute fracture, dislocation or une xpected opaque foreign body. IMPRESSION: Right hip arthroplasty with expected postoperative changes. ACT 112: Negative or not required by law. Electronically signed by: Alexander Brown M.D. 07/07/2022 11:36 AM
[2022-07-07] MEDS: HYDROmorphone INJ 0.5 MG/0.5 ML SYR IV SCH ×5 (11:54→11:58)
--- NOTE | 2022-07-07 13:32 | Anesthesiology Progress Note ---
Date of Service July 07, 2022 Anesthesia Post Procedure Vital Signs Vital Signs: Temp Pulse Pulse Resp BP Pulse Ox O2 Del Method 07/07/22 13:20 Room Air 07/07/22 13:00 36.9 C 79 18 136/86 95 Room Air 07/07/22 12:12 36.5 C 84 18 142/82 H 93 Room Air 07/07/22 11:04 36.7 C 75 18 130/76 96 Room Air 07/07/22 10:30 70 16 112/72 93 Room Air 07/07/22 10:00 36.6 C 60 16 119/78 93 Room Air 07/07/22 09:59 36.6 C 60 16 119/78 93 Room Air 07/07/22 09:51 Room Air 07/07/22 09:42 36.4 C L 63 16 104/64 93 Room Air 07/07/22 09:30 36.4 C L 71 12 126/71 92 Room Air 07/07/22 09:20 65 15 113/75 98 Room Air 07/07/22 09:00 69 12 118/76 91 Room Air 07/07/22 09:10 67 13 115/73 92 Room Air 07/07/22 08:50 71 19 113/68 96 Oxymask 07/07/22 08:42 36.1 C L 69 18 93/64 L 93 Oxymask 07/07/22 05:48 36.5 C 71 20 121/81 97 Room Air O2 Flow Rate 07/07/22 13:20 07/07/22 13:00 07/07/22 12:12 07/07/22 11:04 07/07/22 10:30 07/07/22 10:00 07/07/22 09:59 07/07/22 09:51 07/07/22 09:42 07/07/22 09:30 07/07/22 09:20 07/07/22 09:00 07/07/22 09:10 07/07/22 08:50 4 07/07/22 08:42 4 07/07/22 05:48 Pain Intensity Bilateral Back: Pain Intensity: 5 Back: Pain Intensity: 4 Transfer of Care Handoff Completed per policy Notes Mental Status: alert / awake / arousable and participated in evaluation Patient Amnestic to Procedure: Yes Nausea / Vomiting: adequately controlled Pain: adequately controlled Airway Patency, RR, SpO2: stable & adequate BP & HR: stable & adequate Hydration State: stable & adequate Neuraxial Anesthesia: was administered and sensory block is resolving Anesthetic Complications: no major complications apparent and Pt Satisfied with anesthetic care
[2022-07-07] MEDS: ACETAMINOPHEN 500 MG TAB PO PRN (13:57)
[2022-07-07] MEDS: ceFAZolin 2000MG 2,000 MG/15 ML SYR IV SCH ×2 (15:09→22:07)
[2022-07-07] MEDS ORDERED: DOCUSATE SODIUM 100 MG CAP PO SCH (21:00)
[2022-07-07] MEDS ORDERED: SENNA 8.6 MG TAB PO SCH (21:00)
[2022-07-07] MEDS ORDERED: RIVAROXABAN 20 MG TAB PO SCH (21:00)
[2022-07-07] MEDS ORDERED: PANTOprazole 40 MG TAB PO SCH (21:00)
[2022-07-07] MEDS ORDERED: SERTRALINE HCL 50 MG TABLET PO SCH (21:00)
[2022-07-07] MEDS ORDERED: CYCLOBENZAPRINE HCL 10 MG TAB PO SCH (21:00)
[2022-07-07] MEDS ORDERED: PREGABALIN 75 MG CAP PO SCH (21:00)
[2022-07-07] MEDS ORDERED: FAMOTIDINE 40 MG TABLET PO SCH (21:00)
[2022-07-07] MEDS ORDERED: ATORVASTATIN 10 MG TAB PO SCH (21:00)
[2022-07-08] MEDS: ACETAMINOPHEN 500 MG TAB PO PRN (01:33)
[2022-07-08] MEDS: oxyCODONE HCL IR 5 MG TAB (IMMEDIATE RELEASE) PO PRN (01:33)
[2022-07-08] MEDS: KETOROLAC 30 MG/ML VIAL IV SCH ×2 (04:26→10:08)
[2022-07-08] MEDS: SODIUM CHLORIDE 0.9% 1000ML 1,000 ML IV SCH (05:21)
--- NOTE | 2022-07-08 07:44 | Orthopedic Progress Note ---
Date of Service July 08, 2022 Assessment & Plan (1) Status post right hip replacement: Overall she is doing very well. She is not having much pain in the right hip. She will be seen by physical therapy today for ambulation and range of motion exercises. She is on Xarelto for DVT prophylaxis. She can be discharged home later today. She will follow-up with orthopedics in 2 weeks. Subjective Leonor was seen and examined at bedside this morning. Overall she is doing fairly well. She is having some pain and burning sensation in the right hip. She has been up and ambulating to the bathroom. She has no complaints.. Review of Systems All systems reviewed & are unremarkable except as noted in HPI & below. Physical Exam On physical examination of the right hip, the dressing is clean and dry. Her leg is out full extension. She has active dorsiflexion plantarflexion of the right ankle.. Results & Data Results & Data Laboratory Results . Diagnostic Findings Postoperative x-rays of the right hip show the prosthesis to be in anatomic alignment without any evidence of fracture, dislocation, or loosening.. PG Care Time/CCT Total # of Minutes Spent Total Time Spent with Patient: Total time spent is greater than 50% in coordination of care (as documented) at patient's floor/unit and/or counseling patient: Coding Level of Care Code 74282 Post Operative Follow-Up Diagnoses Status post right hip replacement Z96.641
--- NOTE | 2022-07-08 07:45 | Discharge Summary ---
Date of Service July 08, 2022 Admission HPI (Per Admitting) Leonor is a pleasant 56-year-old female who had a left hip replaced by Dr. Pearce over 20 years ago. Unfortunately postoperatively she developed 2 DVTs. She was found to have factor V Leiden deficiency. She has been on Xarelto since. She has a lot of back issues too. She has seen multiple physicians for that. Her bigger complaint now is her right hip pain. It keeps her up at night. She has constant pain in her groin. She is ambulating with a cane. X- rays and clinical examination have shown advanced osteoarthritis of the right hip. After failing conservative treatment, she has elected proceed with a right anterior total hip arthroplasty. Admission Exam (Per Admitting) On physical examination of the right hip, she has decreased range of motion. She has pain with forced internal and external rotation.. Principal Diagnosis Same as "Discharge Diagnosis" noted below under Discharge Instructions. Discharge Exam On physical examination of the right hip, the dressing is clean and dry. Her leg is out full extension. She has active dorsiflexion plantarflexion of the right ankle.. Discharge Data Procedures Performed Operation Date: 07/07/22 07:00 Actual Procedures p Right Anterior Total Hip Arthroplasty(Right) - Refugio Rosario DO Ordered Studies 07/07/22 07:00 FL hip RT 1V Routine Hospital Course (1) Status post right hip replacement: On July 07, 2022 Leonor arrived at [facility] and underwent a right hip replacement without complication. She had a spinal anesthetic. Postoperatively she was started on Xarelto for DVT prophylaxis and transferred to the general orthopedic floors. Her hospital course was uneventful. On postop day #1, her vital signs were stable and her pain was well controlled. She was able to participate well with physical therapy doing ambulation and range of motion exercises. She was then discharged home. She will follow-up with orthopedics in 2 weeks. PG Care Time/CCT Total # of Minutes Spent Total Time Spent with Patient: Total time spent is greater than 50% in coordination of care (as documented) at patient's floor/unit and/or counseling patient: Discharge Plan Discharge Items Patient Disposition: Home - Home Health Services Reason For Visit: Degenerative Joint Disease Right Hip Discharge Diagnosis: Right hip replacement Activity: Per Instructions section Non-emergency contact: Surgeon Call non-emergency contact if: your wound has increased redness and your wound has increased drainage Follow-up/Referrals: Veena Pizarro M.D. [Primary Care Provider] - Diet: Regular Addtl Attending Provider Instructions: Activity and Therapy Recommendations: * If you are using [facility] then therapy will be provided at your home until they feel you have accomplished all of your goals. * If you are using [facility] then Physical Therapy will be provided until they feel you are ready to start Outpatient Physical Therapy. * If you are not using home therapy then Outpatient Physical Therapy should start about 3-5 days from your day of surgery. Therapy will last about 6-10 weeks * You were shown a series of exercises in the hospital. Do these exercises three times each day including the exercises you were shown in physical therapy. * Get up and walk several times each day.~ For the first four weeks, try not to stand or walk for more than one hour at a time. If you do stand or walk for more than one hour, you will not hurt anything, but your leg will likely swell.~~ * As you feel comfortable, you may change from the walker or crutches to a cane and~then to independent walking. Medications: * Narcotic You will likely be sent home from the hospital with a prescription for the narcotic pain medication that worked best throughout your stay. * Xarelto-continue your Xarelto as prescribed. * Other medications may be prescribed for specific circumstances. If you have any questions, please call the office at . * Resume previous home medications unless otherwise instructed TEDs/Elastic Stockings: The white elastic stockings help limit swelling and prevent blood clots from forming in your legs. The more you wear them, the more they work. Wear them for six weeks. Dressing Care: Leave the Silverlon dressing in place for 7 days. After 7 days you may remove the dressing. If the incision is not draining then you may leave the piero open to air. If there is a little bit of drainage or if the piero are getting stuck on your clothing then cover the incision with a dry dressing. The piero will be removed at your 2 week follow-up appointment. Showering: You may shower with the Silverlon dressing in place. Do not let the shower spray hit the dressing directly. Pat the Silverlon dressing dry. If the dressing becomes wet underneath, then simply remove the dressing. Keep the incision dry until you are 7 days out from the day of surgery. After 7 days you may remove the Silverlon dressing and shower with the piero exposed. Let soapy water run over the piero and pat them dry. Do not scrub or soak the incision. Things To Watch For: * Drainage from the incision site that occurs more than one week after your surgery. * Increased redness at the incision site. * Fever above 102 degrees Fahrenheit. * Unusual chest pain or shortness of breath. * Call [facility] at with any of the above problems Follow-Up Visit: Follow-up with Dr. Rosario's PA (Refugio Aguirre) 2-3 weeks after your day of surgery. He will remove your piero and answer any questions. If you have any additional questions or concerns, Dr Rosario is usually in the office at the same time and will be available An appointment was probably scheduled when you signed-up for surgery in the office. If you have any questions call Office Instructions: More detailed instructions as well as Frequently Asked Questions were provided in a folder by our office when you signed-up for surgery. Please review these instructions when you get home. If you have any further questions or concerns, please feel free to call the office at [phone] Pending Studies at Discharge: No Stand-Alone Forms: My [facility], Smoking Cessation Medications and DC Order Prescriptions: Continued pantoprazole [Protonix] 40 mg tablet,delayed release (DR/EC) 40 mg PO QPM sertraline 25 mg tablet 25 mg PO QPM Xarelto 20 mg tablet 20 mg PO QPM Rx Instructions: must administer with evening meal pregabalin [Lyrica] 225 mg capsule 225 mg PO QPM albuterol sulfate 90 mcg/actuation HFA aerosol inhaler 2 puff inhalation Q6H PRN (Reason: Shortness Of Breath Or Wheezing) atorvastatin 10 mg tablet 10 mg PO QPM docusate sodium 100 mg capsule 100 mg PO QPM marijuana 1 inh PO DAILY Patient Comments: ~4 G TOTAL PER DAY, 3 TYPES EACH DAY melatonin 3 mg capsule 3 mg PO HS PRN (Reason: Sleep) oxycodone 10 mg tablet extended release 12 hr 5 mg PO BID Patient Comments: TOLD ONLY TO TAKE 10MG PER DAY MAX DOSE. (DME) 3-in-1 Commode Misc See Rx Instructions .MEDSUPPLY Qty: 1 0RF Rx Instructions: As directed (DME) Wheeled Walker Misc See Rx Instructions .MEDSUPPLY Qty: 1 0RF Rx Instructions: As directed oxycodone-acetaminophen [Percocet] 5-325 mg tablet 1 tab PO Q6H PRN (Reason: pain) Qty: 60 0RF cyclobenzaprine 10 mg tablet 10 mg PO HS pregabalin [Lyrica] 75 mg Capsule 75 mg PO QAM acetaminophen [Tylenol Extra Strength] 500 mg Tablet 1,000 mg PO BID PRN (Reason: Pain) fluticasone propion-salmeterol [Advair Diskus] 250-50 mcg/dose Blister With Device 1 inh INHALATION BID famotidine 40 mg tablet 40 mg PO QPM oxycodone 5 mg tablet 5 - 10 mg PO UD PRN (Reason: pain, for initial therapy, max 6 tabs per day) Patient Comments: INITIAL THERAPY Rx Instructions: [id number] NEEDED Humira(CF) Pen 40 mg/0.4 mL pen injector kit 40 mg subcut Q7D Discontinued enoxaparin [Lovenox] 40 mg/0.4 mL syringe 40 mg subcut DAILY 4 Days Qty: 1.6 0RF Admission Data Admit Date/Time: 07/07/22 08:48 Attending Provider: Refugio Rosario Admit Provider: Refugio Rosario Primary Care Provider: Veena Pizarro
[2022-07-08] MEDS ORDERED: dexAMETHasone 4 MG TAB PO SCH (08:00)
[2022-07-08] MEDS: DOCUSATE SODIUM 100 MG CAP PO SCH (08:11)
[2022-07-08] MEDS: MULTIVITAMIN TAB PO SCH (08:11)
[2022-07-08] MEDS: PREGABALIN 75 MG CAP PO SCH (08:13)
[2022-07-08] MEDS ORDERED: oxyCODONE HCL 10 MG TABCR (OxyCONTIN) PO SCH (09:00)
== END 2022-07-08 10:44 | disposition home health service (06) ==
LOC: ASU 05:09 → 3E 05:09